=== PATIENT | female | born 1995 | race Caucasian/White ===

== ENCOUNTER 2019-11-04 20:43 | Outpatient (CLI) | payer OTHER ==
[~2019-11-04] VITALS: Ht 167.6 cm; Wt 70.0 kg
[2019-11-04 20:57] VITALS: BP 113/72
== END 2019-11-04 21:00 | disposition home or self-care (01) ==
LOC: MERGE 20:43 → LDOP 20:43
PROVIDERS: ATTEND Student in an Organized Health Care Education/Training Program
DX: O36.8130 Decreased fetal movements, third trimester, not applicable or unspecified (principal); Z3A.36 36 weeks gestation of pregnancy
CPT/HCPCS: 59025; 99201; G0463

== ENCOUNTER 2019-11-13 13:35 | Inpatient (IN) | payer OTHER ==
[~2019-11-13] VITALS: Ht 167.6 cm; Wt 70.5 kg
[2019-11-13 14:00] VITALS: BP 97/102
[2019-11-13] MEDS ORDERED: OXYTOCIN 30U/ 0.9% NaCL 500ML 500 ML IV ONE (14:16)
[2019-11-13] MEDS ORDERED: D5%-LACTATED RINGERS 1,000 ML IV SCH (14:16)
[2019-11-13] MEDS ORDERED: PREN1TAB60 PO (14:18)
[2019-11-13] MEDS ORDERED: FENTANYL PF 100 MCG/2ML IV PRN (14:30)
[2019-11-13] MEDS ORDERED: CALCIUM CARBONATE 500 MG TAB.CHEW PO PRN (14:30)
[2019-11-13] MEDS ORDERED: ONDANSETRON 2MG/ML, 2ML IVPush PRN ×2 (14:30→16:00)
[2019-11-13] MEDS ORDERED: TERBUTALINE 1 MG/ML, 1ML SQ PRN (14:30)
[2019-11-13] MEDS ORDERED: TERBUTALINE 1 MG/ML, 1ML IVPush PRN (14:30)
[2019-11-13] MEDS ORDERED: FENTANYL PF 100 MCG/2ML IVPush PRN (14:30)
[2019-11-13] MEDS ORDERED: FENTANYL/BUPIV./NS/PF 250 ML EPIDCONT SCH ×2 (14:31→15:56)
[2019-11-13] MEDS: LACTATED RINGERS 1,000 ML IV SCH ×4 (14:41→23:56)
[2019-11-13] MEDS ORDERED: NEWBORN KIT ONE (14:55)
[2019-11-13] MEDS ORDERED: OXYTOCIN 30U/ 0.9% NaCL 500ML 500 ML ONE ×2 (14:56→22:07)
[2019-11-13] MEDS ORDERED: LIDOCAINE 1%, 20ML ONE ×2 (14:56→15:33)
[2019-11-13] MEDS ORDERED: MISOPROSTOL 200 MCG TABLET ONE (14:56)
[2019-11-13] MEDS ORDERED: FENTANYL PF 100 MCG/2ML ONE (15:05)
[2019-11-13 15:17] LABS: BASOPHILS # (AUTO) 0.03 x10^3/uL (0-0.1); BASOPHILS % (AUTO) 0 % (0-1); EOSINOPHILS # (AUTO) 0.04 x10^3/uL (0-0.4); EOSINOPHILS % (AUTO) 0 % (1-7); LYMPHOCYTES # (AUTO) 1.54 x10^3/uL (1-3.4); LYMPHOCYTES % (AUTO) 13 % (22-44); MD NO; MEAN CORPUSCULAR HEMOGLOBIN 30.3 pg (27.0-34.8); MEAN CORPUSCULAR HGB CONC 32.9 g/dL (32.4-35.8); MEAN PLATELET VOLUME 10.5 fL (7.4-10.4); MONOCYTES # (AUTO) 0.72 x10^3/uL (0.2-0.8); MONOCYTES % (AUTO) 6 % (2-9); NEUTROPHILS # (AUTO) 9.42 x10^3/uL (1.8-6.8); NEUTROPHILS % (AUTO) 80 % (42-75); PLATELET COUNT 178 x10^3/uL (130-400)
[2019-11-13] MEDS ORDERED: BUPIVACAINE 0.25% ONE (15:29)
[2019-11-13] MEDS ORDERED: LIDOCAINE/PF 1.5%-EPI 1:200K, 30ML ONE (15:33)
[2019-11-13] MEDS ORDERED: FENTANYL/BUPIV./NS/PF 250 ML EPIDCONT ONE ×2 (15:33→15:35)
[2019-11-13] MEDS ORDERED: EPHEDRINE 50 MG/ML, 1ML IVPush PRN (16:00)
[2019-11-13] MEDS ORDERED: DIPHENHYDRAMINE 50 MG/ML, 1ML IVPush PRN (16:00)
[2019-11-13] MEDS ORDERED: NALOXONE 0.4 MG/ML, 1ML IVPush PRN (16:00)
[2019-11-13] MEDS ORDERED: LACTATED RINGERS 1,000 ML IVBOLUS PRN (16:00)
[2019-11-13] MEDS ORDERED: OXYTOCIN 30U/ 0.9% NaCL 500ML 500 ML IV PRN (19:50)
[2019-11-13] MEDS: OXYTOCIN 30U/ 0.9% NaCL 500ML 500 ML IV SCH (21:26)
[2019-11-13] MEDS ORDERED: MISOPROSTOL 200 MCG TABLET PR PRN (21:30)
[2019-11-13] MEDS ORDERED: ONDANSETRON 2MG/ML, 2ML IV PRN (21:30)
[2019-11-13] MEDS ORDERED: SIMETHICONE 80 MG CHEW TAB PO PRN (21:30)
[2019-11-13] MEDS ORDERED: IBUPROFEN 600 MG TABLET ONE (21:58)
[2019-11-13] MEDS: IBUPROFEN 600 MG TABLET PO PRN (22:04)
[2019-11-13 23:05] VITALS: BP 101/60
[2019-11-14] MEDS: OXYcodone/APAP 5/325MG TABLET PO PRN ×5 (02:30→17:20)
[2019-11-14 05:00] VITALS: BP 109/66
[2019-11-14] MEDS: IBUPROFEN 600 MG TABLET PO PRN ×3 (05:22→17:18)
[2019-11-14 05:50] LABS: MEAN CORPUSCULAR HEMOGLOBIN 30.3 pg (27.0-34.8); MEAN CORPUSCULAR HGB CONC 32.8 g/dL (32.4-35.8); MEAN PLATELET VOLUME 10.7 fL (7.4-10.4); PLATELET COUNT 136 x10^3/uL (130-400); RED BLOOD COUNT 3.63 x10^6/uL (3.82-5.3)
[2019-11-14 06:36] LABS: BASOPHILS # (AUTO) 0.11 x10^3/uL (0-0.1); BASOPHILS % (AUTO) 1 % (0-1); EOSINOPHILS # (AUTO) 0.01 x10^3/uL (0-0.4); EOSINOPHILS % (AUTO) 0 % (1-7); LYMPHOCYTES # (AUTO) 1.68 x10^3/uL (1-3.4); LYMPHOCYTES % (AUTO) 9 % (22-44); MD SCAN; MONOCYTES # (AUTO) 1.01 x10^3/uL (0.2-0.8); MONOCYTES % (AUTO) 6 % (2-9); NEUTROPHILS # (AUTO) 15.39 x10^3/uL (1.8-6.8); NEUTROPHILS % (AUTO) 85 % (42-75)
[2019-11-14] MEDS: OXYTOCIN 30U/ 0.9% NaCL 500ML 500 ML IV SCH ×2 (07:26→17:26)
[2019-11-14] MEDS: LACTATED RINGERS 1,000 ML IV SCH ×2 (07:56→15:56)
[2019-11-14 08:32] VITALS: BP 96/60
[2019-11-14] MEDS: DOCUSATE 100 MG CAPSULE PO PRN (08:39)
[2019-11-14] MEDS ORDERED: PRENATAL VIT/IRON/FA 1 EACH TABLET PO SCH (09:00)
[2019-11-14] MEDS ORDERED: RHOGAM FROM BLOOD BANK 1 NOTE EA IM/IV ONE (11:00)
[2019-11-14 12:34] VITALS: BP 112/72
[2019-11-14 16:28] VITALS: BP 100/63
[2019-11-14 20:00] VITALS: BP 106/63
[2019-11-15] MEDS: IBUPROFEN 600 MG TABLET PO PRN ×2 (00:58→04:48)
[2019-11-15] MEDS: DOCUSATE 100 MG CAPSULE PO PRN (04:48)
[2019-11-15] MEDS: OXYcodone/APAP 5/325MG TABLET PO PRN (06:27)
[2019-11-15 08:58] VITALS: BP 116/76
[2019-11-15] MEDS ORDERED: DOCU-131 PO (09:17)
[2019-11-15] MEDS ORDERED: IBUP-1223 PO (09:17)
[2019-11-15] MEDS ORDERED: OXYC-302 PO (09:18)
== END 2019-11-15 10:24 | disposition home or self-care (01) | DRG 807 ==
LOC: LDOP 13:35 → LDIP 14:26 → 2NW 22:55
PROVIDERS: ADMIT Student in an Organized Health Care Education/Training Program; ATTEND Student in an Organized Health Care Education/Training Program
PROC: 0HQ9XZZ Repair Perineum Skin, External Approach (ICD-10-PCS; principal; 2019-11-13)
PROC: 10E0XZZ Delivery of Products of Conception, External Approach (ICD-10-PCS; 2019-11-13)
PROC: 3E0R3BZ Introduction of Anesthetic Agent into Spinal Canal, Percutaneous Approach (ICD-10-PCS; 2019-11-13)
PROC: 00HU33Z Insertion of Infusion Device into Spinal Canal, Percutaneous Approach (ICD-10-PCS; 2019-11-13)
PROC: 3E0234Z Introduction of Serum, Toxoid and Vaccine into Muscle, Percutaneous Approach (ICD-10-PCS; 2019-11-14)
DX: O70.0 First degree perineal laceration during delivery (principal); Z37.0 Single live birth; Z3A.37 37 weeks gestation of pregnancy; Z83.3 Family history of diabetes mellitus; Z80.3 Family history of malignant neoplasm of breast; O26.893 Other specified pregnancy related conditions, third trimester; Z67.41 Type O blood, Rh negative
CPT/HCPCS: 36415; J3490; 85025; 85461; 86592; 86850; 86870; 86900; 86922; 86923; G0378; J2790; J2590; J3010; J7120